=== PATIENT | female | born 1955 | race Caucasian/White ===

== ENCOUNTER 2020-10-04 09:28 | Observation (INO) | payer OTHER ==
[~2020-10-04] VITALS: Ht 170.2 cm; Wt 94.5 kg
[~2020-10-04 09:28] MED LIST: ASPI-963 PO; BEMP1TAB PO; BUPR300T49 PO; HYDR25TA6 PO; METO25TA35 PO; ROSU10TA2 PO
[2020-10-04] MEDS ORDERED: LOSARTAN PO (10:09)
[2020-10-04] MEDS ORDERED: CHLORHEXIDINE 15 ML UDC ONE (10:16)
[2020-10-04] MEDS ORDERED: LOSA25TA25 PO (10:27)
[2020-10-04] MEDS ORDERED: ROSU10TA2 PO (10:28)
[2020-10-04] MEDS ORDERED: LACTATED RINGERS 1,000 ML IV SCH (10:30)
[2020-10-04] MEDS ORDERED: VANCOMYCIN PER PHARMACY MC PRN (10:30)
[2020-10-04] MEDS ORDERED: CHLORHEXIDINE 15 ML UDC PO ONE (10:30)
[2020-10-04] MEDS ORDERED: VANCOMYCIN 1,700 MG in SODIUM CHLORIDE 0.9% 250 ML IV ONE (10:30)
[2020-10-04] MEDS ORDERED: GABAPENTIN 300 MG CAPSULE PO ONE (10:30)
[2020-10-04] MEDS ORDERED: VANCOMYCIN 1,700 MG in SODIUM CHLORIDE 0.9% 250 ML IV SCH (10:30)
[2020-10-04] MEDS ORDERED: ACETAMINOPHEN 500 MG TABLET PO ONE (10:30)
[2020-10-04] MEDS ORDERED: ROPIvacaine/PF 0.2%, 20 ML ONE (13:12)
[2020-10-04] MEDS ORDERED: TRANEXAMIC ACID 100 MG/ML, 10ML ONE (13:12)
[2020-10-04] MEDS ORDERED: SODIUM CHLORIDE 0.9% 50 ML ONE (13:12)
[2020-10-04] MEDS ORDERED: KETOROLAC 60 MG/2 ML ONE (13:12)
[2020-10-04] MEDS ORDERED: EPINEPHRINE 1 MG/ML, 1ML ONE (13:12)
[2020-10-04] MEDS ORDERED: LORazepam 2 MG/ML, 1ML IVPush PRN (13:30)
[2020-10-04] MEDS ORDERED: hydrALAzine 20 MG/ML, 1ML IV PRN (13:30)
[2020-10-04] MEDS ORDERED: ONDANSETRON 2MG/ML, 2ML IVPush PRN ×2 (13:30→15:00)
[2020-10-04] MEDS ORDERED: PROMETHAZINE 25 MG/ML, 1ML IVPush PRN (13:30)
[2020-10-04] MEDS ORDERED: FENTANYL PF 100 MCG/2ML IV PRN (13:30)
[2020-10-04] MEDS ORDERED: LABETALOL 5MG/ML, 20ML IV PRN (13:30)
[2020-10-04] MEDS ORDERED: HYDROmorphone 1 MG/ML, 1ML INJ IVPush PRN ×2 (13:30→15:00)
[2020-10-04] MEDS ORDERED: METHOCARBAMOL 1,000 MG in DEXTROSE 5% 100 ML IV PRN (13:30)
[2020-10-04] MEDS ORDERED: MEPERIDINE/PF 25MG/0.5ML IVPush PRN (13:30)
[2020-10-04] MEDS ORDERED: ACETAMINOPHEN 325 MG TABLET PO PRN (13:30)
[2020-10-04] MEDS ORDERED: OXYcodone 5 MG/5 ML ORAL.SOL UDC PO PRN (13:30)
[2020-10-04] MEDS ORDERED: LIDOCAINE 1%, 20ML ONE (13:49)
[2020-10-04] MEDS ORDERED: PROPOFOL 10 MG/ML, 20ML ONE (13:49)
[2020-10-04] MEDS ORDERED: ONDANSETRON 2MG/ML, 2ML ONE (13:49)
[2020-10-04] MEDS ORDERED: DEXAMETHASONE 4 MG/ML, 1ML ONE (13:49)
[2020-10-04] MEDS ORDERED: MIDAZOLAM 1 MG/ML, 2ML ONE (14:52)
[2020-10-04] MEDS ORDERED: FENTANYL PF 250 MCG/5ML ONE (14:52)
[2020-10-04] MEDS ORDERED: FENTANYL PF 100 MCG/2ML ONE (14:52)
[2020-10-04] MEDS ORDERED: METOCLOPRAMIDE 5 MG/ML, 2ML IVPush PRN (15:00)
[2020-10-04] MEDS ORDERED: DIPHENHYDRAMINE 50 MG/ML, 1ML IVPush PRN (15:00)
[2020-10-04] MEDS ORDERED: MAGNESIUM HYDROXIDE 8%, 30ML UDC PO PRN (15:00)
[2020-10-04] MEDS ORDERED: ALUMINUM/MAG/SIMETHICONE 30 ML UDC PO PRN (15:00)
[2020-10-04] MEDS ORDERED: SENNA/DOCUSATE TABLET PO PRN (15:00)
[2020-10-04] MEDS ORDERED: ONDANSETRON 4 MG TABLET PO PRN (15:00)
[2020-10-04] MEDS ORDERED: PSYLLIUM PACKET PO PRN (15:00)
[2020-10-04] MEDS ORDERED: DIPHENHYDRAMINE 50 MG CAPSULE PO PRN (15:00)
[2020-10-04] MEDS ORDERED: ACETAMINOPHEN 650 MG/20.3 ML UDC PO PRN (15:00)
[2020-10-04] MEDS ORDERED: POLYETHYLENE GLYCOL 17 GM PACKET PO PRN (15:00)
[2020-10-04] MEDS ORDERED: PROMETHAZINE 25 MG/ML, 1ML ONE (15:30)
[2020-10-04] MEDS ORDERED: TRANEXAMIC ACID 1,000 MG in SODIUM CHLORIDE 0.9% 100 ML IVPB ONE (15:45)
[2020-10-04 16:30] VITALS: BP 124/85
[2020-10-04] MEDS: POTASSIUM CHLORIDE 20 MEQ in D5%-0.45% NACL 1,000 ML IV SCH (17:55)
[2020-10-04] MEDS: KETOROLAC 30 MG/1 ML IV SCH (17:55)
[2020-10-04 18:39] VITALS: BP 126/83
[2020-10-04] MEDS: METOPROLOL TARTRATE 25 MG TAB PO SCH (19:01)
[2020-10-04] MEDS: DOCUSATE 100 MG CAPSULE PO SCH (19:59)
[2020-10-04] MEDS ORDERED: ATORVASTATIN 40 MG TABLET PO SCH (21:00)
[2020-10-04] MEDS ORDERED: BUPROPION HCL 300 MG HOMEMEDPO SCH (21:00)
[2020-10-04] MEDS: CEFAZOLIN PMX 1GM/50ML 50 ML IVPB SCH (22:32)
[2020-10-04] MEDS: OXYcodone IR 5MG TABLET PO PRN (22:33)
[2020-10-05] MEDS ORDERED: VANCOMYCIN 1,000 MG in SODIUM CHLORIDE 0.9% 100 ML IVPB ONE
[2020-10-05 00:58] VITALS: BP 122/78
[2020-10-05] MEDS: KETOROLAC 30 MG/1 ML IV SCH ×2 (02:37→10:14)
[2020-10-05 02:47] VITALS: BP 126/75
[2020-10-05] MEDS: OXYcodone IR 5MG TABLET PO PRN (03:25)
[2020-10-05 03:53] VITALS: BP 127/63
[2020-10-05 05:24] VITALS: BP 133/73
[2020-10-05] MEDS: POTASSIUM CHLORIDE 20 MEQ in D5%-0.45% NACL 1,000 ML IV SCH (05:25)
[2020-10-05] MEDS: METOPROLOL TARTRATE 25 MG TAB PO SCH (05:25)
[2020-10-05] MEDS ORDERED: ASPIRIN 81 MG TABLET EC PO SCH (06:00)
[2020-10-05] MEDS ORDERED: DEXAMETHASONE 4 MG/ML, 1ML IVPush ONE (06:00)
[2020-10-05] MEDS: CEFAZOLIN PMX 1GM/50ML 50 ML IVPB SCH (06:24)
[2020-10-05 08:00] VITALS: BP 125/78
[2020-10-05] MEDS: DOCUSATE 100 MG CAPSULE PO SCH (08:05)
[2020-10-05] MEDS ORDERED: EZETIMIBE HOMEMEDPO SCH (09:00)
[2020-10-05] MEDS ORDERED: HYDROCHLOROTHIAZIDE 25 MG TABLET PO SCH (09:00)
[2020-10-05] MEDS ORDERED: ASPIRIN 81 MG TABLET CHEW PO SCH (09:00)
[2020-10-05] MEDS ORDERED: TAMSULOSIN 0.4 MG CAP.ER.24H PO SCH (09:00)
[2020-10-05] MEDS ORDERED: LOSARTAN 25MG TABLET PO SCH (09:00)
[2020-10-05] MEDS ORDERED: BEMPEDOIC ACID HOMEMEDPO SCH (09:00)
[2020-10-05] MEDS ORDERED: ASPI-963 PO (11:55)
== END 2020-10-05 12:07 | disposition home or self-care (01) ==
LOC: OUT 09:28 → ORIP 14:57 → 4NE 16:15 → DCLOUNGE 10-05 11:55
PROVIDERS: ADMIT Orthopaedic Surgery; ATTEND Orthopaedic Surgery
DX: T84.052A Periprosthetic osteolysis of internal prosthetic right knee joint, initial encounter (principal); M96.0 Pseudarthrosis after fusion or arthrodesis; S76.111A Strain of right quadriceps muscle, fascia and tendon, initial encounter; M17.11 Unilateral primary osteoarthritis, right knee; I25.10 Atherosclerotic heart disease of native coronary artery without angina pectoris; I10 Essential (primary) hypertension; E78.5 Hyperlipidemia, unspecified; Z96.651 Presence of right artificial knee joint; Z95.1 Presence of aortocoronary bypass graft; Z79.899 Other long term (current) drug therapy
CPT/HCPCS: 24341; 27350; 27487; 36415; 73560; 85014; 85018; 96361; 96365; 96366; 96367; 96375; 96376; 97110; 97161; 97166; C1776; G0378; J0171; J0690; J1100; J1885; J2250; J2405; J2550; J2704; J2795; J3010; J3370; J3480; J3490; J7050; J7120